=== PATIENT | male | born 1960 | race Caucasian/White ===

== ENCOUNTER 2019-08-04 16:04 | Emergency (ER) | payer BC ==
[~2019-08-04] VITALS: Ht 175.3 cm; Wt 85.3 kg
[2019-08-04] MEDS ORDERED: TRAMADOL 50 MG50 MG PO ×2 (18:06→18:38)
[2019-08-04] MEDS ORDERED: NAPROSYN500 MG PO ×2 (18:06→18:38)
[2019-08-04 19:04] VITALS: BP 121/78
== END 2019-08-04 18:55 | disposition home or self-care (01) ==
LOC: ER 16:04
DX: M54.5 Low back pain (principal); G89.29 Other chronic pain; J45.909 Unspecified asthma, uncomplicated; Z98.890 Other specified postprocedural states; V89.2XXA Person injured in unspecified motor-vehicle accident, traffic, initial encounter; Y92.89 Other specified places as the place of occurrence of the external cause; Y93.89 Activity, other specified; Y99.8 Other external cause status